=== PATIENT | female | born 1995 | race Caucasian/White ===

== ENCOUNTER 2017-10-09 06:21 | Emergency (ER) | payer BC, OTHER ==
[~2017-10-09] VITALS: Ht 165.1 cm; Wt 90.7 kg
[~2017-10-09 06:21] MED LIST: ACHYD1T PO; HYDR-3714 PO; HYDR1TAB PO; HYOS0.1216 PO; NITR100C3 PO; NORE1TAB95 PO; ONDA4TAB11 PO; PHEN200T16 PO; PHEN200T27 PO; SILO4CAP PO; SULF-109 PO; SULF-222 PO
[2017-10-09] MEDS ORDERED: ONDANSETRON 4 MG/2 ML (SDV) Z0FRAN IVP ONE (07:00)
[2017-10-09] MEDS ORDERED: NS IV 1000 ML 1,000 ML IV SCH (07:00)
[2017-10-09] MEDS ORDERED: KETOROLAC 30 MG/ML VIAL IVP ONE (07:00)
[2017-10-09 07:11] LABS: BASOPHILS % (AUTO) 0 % (0-10); EOSINOPHILS % (AUTO) 0 % (0-10); HEMATOCRIT 40 % (35-52); HEMOGLOBIN 13.9 G/DL (11.5-16.0); LYMPHOCYTES # (AUTO) 1.6 X 10^3 (1.0-4.0); LYMPHOCYTES % (AUTO) 13 % (12-44); MEAN CORPUSCULAR HEMOGLOBIN 30 PG (25-34); MEAN CORPUSCULAR HGB CONC 35 G/DL (32-36); MEAN CORPUSCULAR VOLUME 87 FL (80-99); MONOCYTES # (AUTO) 0.6 X 10^3 (0.0-1.0); MONOCYTES % (AUTO) 4 % (0-12); NEUTROPHILS # (AUTO) 10.6 X 10^3 (1.8-7.8); NEUTROPHILS % (AUTO) 83 % (42-75); PLATELET COUNT 332 10^3/uL (130-400); RED BLOOD COUNT 4.59 10^6/uL (4.35-5.85); RED CELL DISTRIBUTION WIDTH 12.3 % (10.0-14.5); WHITE BLOOD COUNT 12.8 10^3/uL (4.3-11.0)
[2017-10-09] MEDS ORDERED: NORE1CAP (07:11)
[2017-10-09] MEDS ORDERED: LEVO88TA54 (07:11)
[2017-10-09 07:21] LABS: ALANINE AMINOTRANSFERASE 31 U/L (0-55); ALBUMIN 4.6 GM/DL (3.2-4.5); ALKALINE PHOSPHATASE 74 U/L (40-136); BILIRUBIN,TOTAL 0.4 MG/DL (0.1-1.0); BUN/CREATININE RATIO 14; CARBON DIOXIDE 21 MMOL/L (21-32); CHLORIDE 106 MMOL/L (98-107); CREATININE SERUM 0.81 MG/DL (0.60-1.30); GFR ESTIMATED > 60; GLUCOSE 133 MG/DL (70-105); POTASSIUM 4.4 MMOL/L (3.6-5.0); SODIUM 140 MMOL/L (135-145); TOTAL PROTEIN 7.8 GM/DL (6.4-8.2)
[2017-10-09] MEDS ORDERED: fentaNYL INJECTION 100 MCG/2 ML AMP ONE (07:38)
[2017-10-09] MEDS ORDERED: fentaNYL INJECTION 100 MCG/2 ML AMP IVP ONE (07:45)
--- NOTE | 2017-10-09 07:45 | ED Abdominal Pain ---
General Chief Complaint: Abdominal/GI Problems Stated Complaint: RT SIDE PAIN Nursing Triage Note: Began RLQ pain at 2100 last night, started with N/V intensity of pain at 0300 Sepsis Screen: No Definite Risk Source of Information: Patient, Family Exam Limitations: No Limitations History of Present Illness Date Seen by Provider: Oct 09, 2017 Time Seen by Provider: 06:45 Initial Comments This is a 22-year-old white female presents with paroxysmal right lower quadrant pain that began last night approximately 6 hours prior to presentation. Patient's had associated nausea and vomiting. Patient's pain is been severe in nature, sharp in quality, nonradiating, and somewhat similar nature to her previous kidney stones. Patient has had no associated fever or chill, dysuria, hematuria, change in stools, associated cough, headache, stiff neck, or photophobia. Patient is compliant on control pills. She denies previous . Allergies and Home Medications Allergies Coded Allergies: Penicillins (Unverified Allergy, Unknown, TURNS PURPLE, 05/07/14) Patient Home Medication List Home Medication List Reviewed: Yes Review of Systems Constitutional: No chills, No fever EENTM: No Ear Pain Respiratory: Denies Cough Cardiovascular: Denies Chest Pain Gastrointestinal: Abdominal Pain (right lower quadrant), Denies Diarrhea, Nausea, Vomiting Genitourinary: See HPI, Denies Burning, Denies Frequency, Denies Flank Pain Musculoskeletal: No back pain Skin: No rash Psychiatric/Neurological: No Symptoms Reported Endocrine: No Symptoms Reported Hematologic/Lymphatic: No Symptoms Reported Past Xnlftbu-Qgtria-Hbuiaf Hx Patient Social History Alcohol Use: Occasionally Uses Recreational Drug Use: No Smoking Status: Never a Smoker Recent Foreign Travel: No Contact w/Someone Who Travel: No Recent Infectious Disease Expo: No Recent Hopitalizations: No Seasonal Allergies Seasonal Allergies: No Surgeries History of Surgeries: No (renal basket retrivial or stent?) Respiratory History of Respiratory Disorde: No Cardiovascular History of Cardiac Disorders: No Neurological History of Neurological Disord: No Reproductive System Hx Reproductive Disorders: No Sexually Transmitted Disease: No Genitourinary History of Genitourinary Disor: No Genitourinary Disorders: Kidney Stones Gastrointestinal History of Gastrointestinal Di: No Musculoskeletal History of Musculoskeletal Dis: No Endocrine History of Endocrine Disorders: No HEENT History of HEENT Disorders: No Cancer History of Cancer: No Psychosocial History of Psychiatric Problem: No Integumentary History of Skin or Integumenta: No Blood Transfusions History of Blood Disorders: No Adverse Reaction to a Blood Tr: No Reviewed Nursing Assessment Reviewed/Agree w Nursing PMH: Yes Physical Exam Vital Signs VS - Last 72 Hours, by Label 10/09/17 06:42 Temp 96.2 Pulse 87 Resp 16 B/P (MAP) 146/102 (117) Pulse Ox 96 O2 Delivery Room Air Capillary Refill : Less Than 3 Seconds General Appearance: WD/WN, moderate distress HEENT: normal ENT inspection Neck: full range of motion Respiratory: lungs clear, normal breath sounds, no respiratory distress Cardiovascular: normal peripheral pulses, regular rate, rhythm Gastrointestinal: normal bowel sounds, non tender, soft Extremities: normal range of motion, non-tender, normal inspection Back: normal inspection Neurologic/Psychiatric: no motor/sensory deficits, alert, normal mood/affect Skin: normal color, warm/dry Progress/Results/Core Measures Results/Orders Lab Results Laboratory Tests Test 10/09/17 06:47 Range/Units White Blood Count 12.8 H 4.3-11.0 10^3/uL Red Blood Count 4.59 4.35-5.85 10^6/uL Hemoglobin 13.9 11.5-16.0 G/DL Hematocrit 40 35-52 % Mean Corpuscular Volume 87 80-99 FL Mean Corpuscular Hemoglobin 30 25-34 PG Mean Corpuscular Hemoglobin Concent 35 32-36 G/DL Red Cell Distribution Width 12.3 10.0-14.5 % Platelet Count 332 130-400 10^3/uL Mean Platelet Volume 10.0 7.4-10.4 FL Neutrophils (%) (Auto) 83 H 42-75 % Lymphocytes (%) (Auto) 13 12-44 % Monocytes (%) (Auto) 4 0-12 % Eosinophils (%) (Auto) 0 0-10 % Basophils (%) (Auto) 0 0-10 % Neutrophils # (Auto) 10.6 H 1.8-7.8 X 10^3 Lymphocytes # (Auto) 1.6 1.0-4.0 X 10^3 Monocytes # (Auto) 0.6 0.0-1.0 X 10^3 Eosinophils # (Auto) 0.0 0.0-0.3 10^3/uL Basophils # (Auto) 0.0 0.0-0.1 10^3/uL Sodium Level 140 135-145 MMOL/L Potassium Level 4.4 3.6-5.0 MMOL/L Chloride Level 106 98-107 MMOL/L Carbon Dioxide Level 21 21-32 MMOL/L Anion Gap 13 5-14 MMOL/L Blood Urea Nitrogen 11 7-18 MG/DL Creatinine 0.81 0.60-1.30 MG/DL Estimat Glomerular Filtration Rate > 60 BUN/Creatinine Ratio 14 Glucose Level 133 H 70-105 MG/DL Calcium Level 10.0 8.5-10.1 MG/DL Total Bilirubin 0.4 0.1-1.0 MG/DL Aspartate Amino Transf (AST/SGOT) 23 5-34 U/L Alanine Aminotransferase (ALT/SGPT) 31 0-55 U/L Alkaline Phosphatase 74 40-136 U/L Total Protein 7.8 6.4-8.2 GM/DL Albumin 4.6 H 3.2-4.5 GM/DL Serum Test, Qualitative NEGATIVE NEGATIVE My Orders Orders - RONAL FALL MD Ondansetron Injection (Zofran Injectio (10/09/17 07:00) Ketorolac Injection (Toradol Injection) (10/09/17 07:00) Ns Iv 1000 Ml (Sodium Chloride 0.9%) (10/09/17 07:00) Abdomen/Kub 1view (10/09/17 07:01) Us Abdomen Complete [id number] (10/09/17 07:01) Ua Culture If Indicated (10/09/17 07:01) Comprehensive Metabolic Panel (10/09/17 07:01) Cbc With Automated Diff (10/09/17 07:01) Hcg,Qualitative Serum (10/09/17 07:20) Fentanyl Injection (Sublimaze Injection (10/09/17 07:45) Fentanyl Injection (Sublimaze Injection (10/09/17 07:38) Medications Given in ED Current Medications Medications Dose Ordered Sig/[place] Route Start Time Stop Time Status Last Admin Dose Admin Fentanyl Citrate 50 mcg ONCE ONCE IVP 10/09/17 07:45 10/09/17 07:46 DC 10/09/17 07:44 50 MCG Ketorolac Tromethamine 30 mg ONCE ONCE IVP 10/09/17 07:00 10/09/17 07:01 DC 10/09/17 07:04 30 MG Ondansetron HCl 4 mg ONCE ONCE IVP 10/09/17 07:00 10/09/17 07:01 DC 10/09/17 07:04 4 MG Vital Signs/I&O Vital Sign - Last 12Hours 10/09/17 06:42 Temp 96.2 Pulse 87 Resp 16 B/P (MAP) 146/102 (117) Pulse Ox 96 O2 Delivery Room Air Blood Pressure Mean: 117 Progress Note : Time: 07:46 Progress Note Patient was given IV Zofran and Toradol. Patient's pain was relieved for approximately 10 minutes and then the pain recurred. She received 50 g of fentanyl IV. Patient's ultrasound demonstrated moderate hydronephrosis on the right. The patient's CBC was unremarkable. I did not see a stone on the KUB. Patient's pain was dramatically improved from presentation at time of discharge. We discussed treatment options at home. The patient declined Flomax. We gave her prescription for small amount of Percocet and Toradol should the pain recur. I invited her to return to the emergency department should any further problems or questions. Departure Impression Impression: Primary Impression: Kidney stone on right side Disposition: 01 HOME, SELF-CARE Condition: Improved ( ) Departure-Patient Inst. Decision time for Depature: 08:45 Referrals: JUDAH AQUINO DO (PCP) Primary Care Physician FREDY NELSON (Family) Primary Care Physician Patient Instructions: Kidney Stones in Adults Add. Discharge Instructions: Percocet and Toradol for pain if needed. Close follow-up with your caregivers on Wednesday. Return of any problems. All discharge instructions reviewed with patient and/or family. Voiced understanding. RONAL FALL MD Oct 09, 2017 07:45
--- NOTE | 2017-10-09 08:22 | Diagnostic Imaging Report ---
INDICATION: Right flank pain. COMPARISON: Radiographs of 05/08/2014. FINDINGS: Punctate rounded 2 mm density overlies the upper pole of the left kidney. Assessment for renal calculi on the right is limited due to overlying bowel gas and colonic stool. Potential 3 mm calculus at the level of the right L3 transverse process. Normal regional skeleton. Nonobstructive bowel gas pattern. IMPRESSION: 1. Radiographic assessment for urinary tract calculi is very limited. If there is concern for urinary tract calculi or obstruction, CT of the abdomen without contrast is recommended. Dictated by: Dictated on workstation # [id number]
[2017-10-09 08:50] VITALS: BP 138/85
[2017-10-09 08:56] LABS: BILIRUBIN,URINE NEGATIVE (NEGATIVE); CLARITY,URINE VERY CLOUDY; COLOR,URINE AMBER; GLUCOSE, URINE (UA) NEGATIVE (NEGATIVE); KETONES,URINE 2+ (NEGATIVE); LEUKOCYTE ESTERASE ,URINE 1+ (NEGATIVE); NITRITE,URINE NEGATIVE (NEGATIVE); PH,URINE 6.5 (5-9); PROTEIN,URINE 2+ (NEGATIVE); UROBILINOGEN,URINE NORMAL (NORMAL)
--- NOTE | 2017-10-09 08:57 | Diagnostic Imaging Report ---
PROCEDURE: US abdomen complete. TECHNIQUE: Multiple real-time grayscale images were obtained over the abdomen in various projections. INDICATION: Right flank pain. COMPARISON: None available. FINDINGS: The liver has diffuse increased echogenicity suggestive of mild hepatic steatosis. Well-circumscribed 1.3 cm hypoechoic nodule in the posterior right hepatic lobe may represent focal fatty sparing but is indeterminate. The main portal vein is patent with antegrade flow. The gallbladder is distended without gallstones, wall thickening, or pericholecystic fluid. The common bile duct measures up to 0.4 cm in diameter. No intrahepatic biliary dilation. The visualized portions of the pancreas are normal. Portions of the head and tail are obscured by overlying bowel gas. The right kidney is normal in size with mild hydronephrosis. No shadowing echogenic calculi. The left kidney is normal. The spleen is normal in size measuring 11 cm and without focal lesion. The aorta and IVC are normal in caliber where seen. IMPRESSION: 1. Mild right hydronephrosis. Given history of right-sided flank pain, features are suspicious for partially obstructing ureteral stone. CT of the abdomen and pelvis according to the renal stone protocol is advised for further characterization. 2. Mild diffuse hepatic steatosis. Potential focal fatty sparing versus indeterminate lesion, right hepatic lobe. Attention on followup CT. Dictated by: Dictated on workstation # [id number]
[2017-10-09 09:10] LABS: BACTERIA,URINE MODERATE /HPF; RBC,URINE TNTC /HPF
== END 2017-10-09 08:50 | disposition home or self-care (01) ==
LOC: EDUNIT# 06:21 → ER 06:24
DX: N20.0 Calculus of kidney (principal); Z32.02 Encounter for pregnancy test, result negative; Z88.0 Allergy status to penicillin
CPT/HCPCS: 36415; 74018; 76700; 80053; 81000; 84703; 85025

== ENCOUNTER → 2020-12-18 | Outpatient (CLI) | payer BC ==
[~2020-12-18] MED LIST changes: +LEVO88TA54; +NORE1CAP
--- NOTE | 2020-12-18 17:08 | Diagnostic Imaging Report ---
INDICATION: Anatomy survey. TECHNIQUE: Multiple real-time grayscale images were obtained over the gravid uterus. COMPARISON: None FINDINGS: CLINICAL DATES: Gestational age 19 weeks, 5 days, with an MARLEN of 05/09/2021. Number: Single live intrauterine Presentation: Cephalic Placenta: Anterior Amniotic Fluid: ANTONY is within normal limits. No measurements were taken. Heart Rate: 149 bpm Biometrical measurements are as follows: Biparietal 4.76 cm, age 20 weeks 3 days. Head circumference 17.43 cm, age 20 weeks 0 days. Abdominal circumference 13.88 cm, age 19 weeks 2 days. Femur length 3.35 cm, age 20 weeks 4 days. Sonographic estimate age: 20 weeks 1 days. Sonographic estimated date of delivery: 05/06/2021. Estimated Weight: 319 gm (+/- 47 gm). LMP percentile: 55%. Cerebellum: visualized Lateral ventricles: visualized Cavum septum pellucidum: visualized Nasal Bone: visualized Face: visualized Stomach: visualized Kidneys: visualized Bladder: visualized Three vessel cord: visualized Cord insertion: visualized 4 chamber heart: visualized outflow tracts: Not well visualized Spine, upper: Not well visualized Spine, lower: Not well visualized Upper extremities: Not well visualized Lower extremities: Not well visualized Hands: Visualized, however not all fingers are well seen. Feet: Visualized, however not all toes are well seen. IMPRESSION: 1. Single live intrauterine at approximately 20 weeks, 1 days, with an MARLEN of 05/06/2021. These are within range clinical dates. 2. The outflow tracts, spine, and upper and lower extremities are not well visualized due to position. The remaining anatomic structures are seen and have a normal appearance. Recommend follow-up as indicated. Dictated by: Dictated on workstation # [id number]
== END ==
LOC: MERGE 15:15 → RAD 15:15
PROVIDERS: ATTEND Obstetrics & Gynecology
DX: Z36.89 Encounter for other specified antenatal screening (principal); Z3A.20 20 weeks gestation of pregnancy
CPT/HCPCS: 76805

== ENCOUNTER → 2021-01-22 | Outpatient (CLI) | payer BC ==
--- NOTE | 2021-01-22 17:46 | Diagnostic Imaging Report ---
INDICATION: Follow-up anatomy. TECHNIQUE: Multiple real-time grayscale images were obtained over the gravid uterus. COMPARISON: 12/18/2020. FINDINGS: A single live intrauterine gestation is visualized in breech presentation. measurements were not performed on this exam. The cervix is closed and measures 5.3 cm in length. The placenta is anterior and not low lying. heart tones measure 152 bpm. The amniotic fluid is visually normal. The upper and lower extremities are visualized and have a normal appearance. The upper spine is visualized and has a normal appearance. The lower spine is again not well seen due to position. The outflow tracts are visualized on today's exam and have a normal appearance. A four-chamber heart is noted. IMPRESSION: 1. Single live intrauterine gestation in breech presentation. heart tones measure 152 bpm. 2. The upper and lower extremities, upper spine, and outflow tracts are visualized on today's exam and have a normal appearance. The lower spine is still not well seen due to position. 3. Breech presentation. Dictated by: Dictated on workstation # [id number]
== END ==
LOC: RAD 15:15
PROVIDERS: ATTEND Obstetrics & Gynecology
DX: Z36.89 Encounter for other specified antenatal screening (principal)
CPT/HCPCS: 76816

== ENCOUNTER 2021-03-17 09:40 | Outpatient (CLI) | payer BC ==
[~2021-03-17] VITALS: Ht 163 cm; Wt 103.1 kg
[2021-03-17 09:55] VITALS: BP 136/97
[2021-03-17 09:57] VITALS: BP 136/97
[2021-03-17 10:00] VITALS: BP 136/97
[2021-03-17 10:13] LABS: BILIRUBIN,URINE NEGATIVE (NEGATIVE); CLARITY,URINE CLEAR; COLOR,URINE YELLOW; GLUCOSE, URINE (UA) NEGATIVE (NEGATIVE); KETONES,URINE 1+ (NEGATIVE); LEUKOCYTE ESTERASE ,URINE NEGATIVE (NEGATIVE); NITRITE,URINE NEGATIVE (NEGATIVE); PROTEIN,URINE NEGATIVE (NEGATIVE)
[2021-03-17 10:25] LABS: BACTERIA,URINE MODERATE /HPF; RBC,URINE RARE /HPF
[2021-03-17 11:37] LABS: BASOPHILS % (AUTO) 0 % (0-10); EOSINOPHILS % (AUTO) 0 % (0-10); HEMATOCRIT 33 % (35-52); HEMOGLOBIN 10.8 g/dL (11.5-16.0); LYMPHOCYTES # (AUTO) 1.5 10^3/uL (1.0-4.0); LYMPHOCYTES % (AUTO) 14 % (12-44); MEAN CORPUSCULAR HEMOGLOBIN 30 pg (25-34); MEAN CORPUSCULAR HGB CONC 33 g/dL (32-36); MEAN CORPUSCULAR VOLUME 92 fL (80-99); MEAN PLATELET VOLUME 10.7 fL (9.0-12.2); MONOCYTES # (AUTO) 0.6 10^3/uL (0.0-1.0); MONOCYTES % (AUTO) 6 % (0-12); NEUTROPHILS # (AUTO) 8.2 10^3/uL (1.8-7.8); NEUTROPHILS % (AUTO) 79 % (42-75); PLATELET COUNT 206 10^3/uL (130-400); WHITE BLOOD COUNT 10.4 10^3/uL (4.3-11.0)
[2021-03-17 11:45] VITALS: BP 153/85
[2021-03-17 12:04] LABS: ALBUMIN 3.2 GM/DL (3.2-4.5); BILIRUBIN,DIRECT 0.2 MG/DL (0.0-0.3); BILIRUBIN,INDIRECT 0.2 MG/DL; BILIRUBIN,TOTAL 0.4 MG/DL (0.1-1.0); CALCIUM 9.4 MG/DL (8.5-10.1); CREATININE SERUM 0.74 MG/DL (0.60-1.30); POTASSIUM 3.9 MMOL/L (3.6-5.0); TOTAL PROTEIN 6.3 GM/DL (6.4-8.2)
--- NOTE | 2021-03-17 12:06 | Diagnostic Imaging Report ---
PROCEDURE: US Gallbladder. TECHNIQUE: Multiple real-time grayscale images were obtained over the right upper quadrant in various projections. INDICATION: Vomiting right upper quadrant pain. COMPARISON STUDY: Ultrasound of the abdomen from 2018. FINDINGS: Pancreas appears normal. The aorta and IVC are normal caliber. The liver is normal size and echogenicity. Portal vein is patent. No duct dilatation is present. Common bile duct is normal caliber measuring 4 mm. No gallstones, pericholecystic fluid, ascites or sonographic Kumar's sign is present. Gallbladder wall is normal thickness measuring 2 mm. The right kidney again demonstrates mild right hydronephrosis. 6 mm hyperechoic area seen in the upper pole. There is a 1.3 cm stone in the right ureter. IMPRESSION: 1. The liver and gallbladder are normal. 2. Right renal lithiasis is present with an obstructing calculi in the proximal right ureter. There is mild hydronephrosis. Dictated by: Dictated on workstation # [id number]
[2021-03-17] MEDS ORDERED: ACETAMINOPHEN 500 MG TAB (TYLENOL) PO ONE (13:15)
[2021-03-17] MEDS ORDERED: D5 LR IV SOLUTION 1,000 ML IV ONE (13:47)
--- NOTE | 2021-03-17 14:00 | Diagnostic Imaging Report ---
INDICATION: Nephrolithiasis. EXAMINATION: KUB at 1:56 p.m. FINDINGS: There is a third trimester in cephalic presentation with back to maternal right. There are no calculi seen, although a small calculus in the ureter could be obscured by the skeleton. Bowel gas pattern is unremarkable. IMPRESSION: Third trimester . No other abnormality seen. Dictated by: Dictated on workstation # [id number]
[2021-03-17] MEDS ORDERED: D5 LR IV SOLUTION 1,000 ML IV SCH (15:00)
--- NOTE | 2021-03-17 15:12 | Diagnostic Imaging Report ---
PROCEDURE: CT urinary tract, rule out kidney stone. TECHNIQUE: Multiple contiguous axial images were obtained through the abdomen and pelvis without the use of intravenous contrast. Auto Exposure Controls were utilized during the CT exam to meet ALARA standards for radiation dose reduction. INDICATION: Kidney stones and a right ureteral stone noted on recent ultrasound. CORRELATION is made with ultrasound from earlier today. FINDINGS: The lung bases are clear. There are numerous intrarenal calculi bilaterally. Largest intrarenal calculus on the right is in the upper pole measuring 5 mm. The largest intrarenal calculus on the left is in the lower pole measuring 4 mm. There is a right ureteral calculus measuring 7 mm in size. This is located just below the level of the iliac crest. No other ureteral calculi are seen. No bladder calculi are detected. The liver, gallbladder, pancreas and spleen are unremarkable. No adrenal mass is seen. Bowel loops are unremarkable. Intrauterine fetus in a breech presentation is noted. IMPRESSION: 1. Bilateral nonobstructing nephrolithiasis. In addition, there is a 7 mm calculus at the junction of the proximal and mid right ureter at the level of the right iliac crest producing mild hydroureteronephrosis. No other ureteral calculi are detected. 2. Third trimester fetus in a cephalic presentation. Dictated by: Dictated on workstation # [id number]
--- NOTE | 2021-03-17 15:58 | History & Physical-OB ---
OB - Chief Complaint & HPI Date/Time Date of Admission: Date of Admission: Date seen by a Provider: Mar 17, 2021 Time Seen by a Provider: 17:30 Chief Complaint/History OB-Reason for Admission/Chief: Hx : 1 Hx Para: 0 Expected Date of Delivery: May 09, 2021 Gestational Age in Weeks: 32 Gestational Age in Days: 3 Other reason for admission: Patient admitted for observation and urology evaluation due to finding ureterolithiasis on US after patient presented with severe abdominal pain and blood in urine. Admission Nurse Assessment Rev: Yes Allergies and Home Medications Allergies Coded Allergies: Penicillins (Unverified Allergy, Unknown, TURNS PURPLE, 05/07/14) Patient Home Medication List Home Medication List Reviewed: Yes OB - History Hx of Present Care: Yes Ultrasounds: Normal mid trimester US Obstetrical Complications: None Medical Complications: None Obstetrical History Hx : 1 Hx Para: 0 Hx Total # of Abortions (Spona: 0 Delivery History Hx Blood Disorders: No Adverse Rxn to Tranfusion: No Patient Past Medical History Hypothyroidism Social History/Family History Alcohol Use: Denies Use Recreational Drug Use: No 2nd Hand Smoke Exposure: No OB - Admission Exam Physical Exam Vitals: Vital Signs 03/17/21 10:00 Temp 36.2 Pulse 95 Resp 20 Pulse Ox 98 O2 Delivery Room Air HEENT: NCAT Heart: Rhythm Normal Lungs: Clear Abdomen: Gravid Heart Rate: 130's Accelerations: Accelerations Present Decelerations: No Decelerations Primer And Powder Canning Leader Variability: Average (6-25) Contractions on Admission: >10 Minutes Apart Labs Laboratory Tests Test 03/17/21 09:45 03/17/21 11:28 Range/Units Urine Color YELLOW Urine Clarity CLEAR Urine pH 7.0 5-9 Urine Specific [place] 1.010 L 1.016-1.022 Urine Protein NEGATIVE NEGATIVE Urine Glucose (UA) NEGATIVE NEGATIVE Urine Ketones 1+ H NEGATIVE Urine Nitrite NEGATIVE NEGATIVE Urine Bilirubin NEGATIVE NEGATIVE Urine Urobilinogen 0.2 < = 1.0 MG/DL Urine Leukocyte Esterase NEGATIVE NEGATIVE Urine RBC (Auto) NEGATIVE NEGATIVE Urine RBC RARE /HPF Urine WBC 5-10 H /HPF Urine Squamous Epithelial Cells 5-10 /HPF Urine Crystals NONE /LPF Urine Bacteria MODERATE H /HPF Urine Casts NONE /LPF Urine Mucus NEGATIVE /LPF Urine Culture Indicated CULTURE PENDING White Blood Count 10.4 4.3-11.0 10^3/uL Red Blood Count 3.55 L 3.80-5.11 10^6/uL Hemoglobin 10.8 L 11.5-16.0 g/dL Hematocrit 33 L 35-52 % Mean Corpuscular Volume 92 80-99 fL Mean Corpuscular Hemoglobin 30 25-34 pg Mean Corpuscular Hemoglobin Concent 33 32-36 g/dL Red Cell Distribution Width 13.3 10.0-14.5 % Platelet Count 206 130-400 10^3/uL Mean Platelet Volume 10.7 9.0-12.2 fL Immature Granulocyte % (Auto) 1 % Neutrophils (%) (Auto) 79 H 42-75 % Lymphocytes (%) (Auto) 14 12-44 % Monocytes (%) (Auto) 6 0-12 % Eosinophils (%) (Auto) 0 0-10 % Basophils (%) (Auto) 0 0-10 % Neutrophils # (Auto) 8.2 H 1.8-7.8 10^3/uL Lymphocytes # (Auto) 1.5 1.0-4.0 10^3/uL Monocytes # (Auto) 0.6 0.0-1.0 10^3/uL Eosinophils # (Auto) 0.0 0.0-0.3 10^3/uL Basophils # (Auto) 0.0 0.0-0.1 10^3/uL Immature Granulocyte # (Auto) 0.1 0.0-0.1 10^3/uL Sodium Level 139 135-145 MMOL/L Potassium Level 3.9 3.6-5.0 MMOL/L Chloride Level 109 H 98-107 MMOL/L Carbon Dioxide Level 22 21-32 MMOL/L Anion Gap 8 5-14 MMOL/L Blood Urea Nitrogen 7 7-18 MG/DL Creatinine 0.74 0.60-1.30 MG/DL Estimat Glomerular Filtration Rate 95 BUN/Creatinine Ratio 9 Glucose Level 73 70-105 MG/DL Calcium Level 9.4 8.5-10.1 MG/DL Corrected Calcium 10.0 8.5-10.1 MG/DL Total Bilirubin 0.4 0.1-1.0 MG/DL Direct Bilirubin 0.2 0.0-0.3 MG/DL Indirect Bilirubin 0.2 MG/DL Aspartate Amino Transf (AST/SGOT) 18 5-34 U/L Alanine Aminotransferase (ALT/SGPT) 24 0-55 U/L Alkaline Phosphatase 236 H 40-136 U/L Total Protein 6.3 L 6.4-8.2 GM/DL Albumin 3.2 3.2-4.5 GM/DL Amylase Level 52 25-125 U/L Lipase 15 8-78 U/L OB - Assessment/Plan/Diagnosis Assessment Assessment: other Admission Dx 25 yo @ 32 weeks Ureterolithiasis Hematuria Admission Status: Observation Plan Other Plan IVF and pain control Consult urology for further recommendation MARY GONZALEZ DO Mar 17, 2021 15:58
--- NOTE | 2021-03-18 08:38 | CONSULTATION REPORT ---
DATE OF SERVICE: 03/17/2021 ATTENDING PHYSICIAN: Bryon Farias DO SUMMARY: After reviewing the patient's record in the hospital and in the office, this is a 25-year-old 32-week , first with history of urolithiasis. I took care of her kidney stones before and then she never followup. She is being admitted with right flank pain. An ultrasound revealed a stone in the proximal ureter, which in my opinion was overestimated size. We did a KUB. I could not see the stone, so we obtained the noncontrast CT scan that revealed bilateral nonobstructing stones and a stone at the junction of the proximal and mid right ureter at the level of the iliac crest causing some mild hydronephrosis. I measured it for less than 5 mm. Patient has been asymptomatic since admission and the pain was relieved by Tylenol. IMPRESSION: Right mid ureteral stone with mild hydronephrosis and pain in a woman. PLAN: I discussed the option in details with the patient and her . Pros and cons, expectation risk and complication. Told her that the best way is to spontaneously pass the urine by pushing fluids and straining to confirm passage of the stone. If not, if we can see the stone we can either retrieve it or put a stent, but if not, she will have to go to a place where they have flexible ureteroscopy to minimize the use of fluoroscopy and to easier access to the stone with the flexible ureteroscope. The patient wishes to go home. We will check with Dr. Farias regarding that. Job ID: [id number] DocumentID: [id number] Dictated Date: 03/18/2021 07:05:28 Director Of Retention Date: 03/18/2021 08:37:50 Dictated By: MARITZA MERAZ MD
== END 2021-03-17 18:20 | disposition home or self-care (01) ==
LOC: WSo 09:40 → LDRP 09:42 → WSo 18:20
PROVIDERS: ATTEND Obstetrics & Gynecology
DX: O26.899 Other specified pregnancy related conditions, unspecified trimester (principal); Z3A.00 Weeks of gestation of pregnancy not specified
CPT/HCPCS: 36415; 74018; 74176; 76705; 80053; 81000; 82150; 82247; 82248; 83690; 85025; 87088; 96360; 96361; 99213

== ENCOUNTER → 2021-04-03 | Outpatient (CLI) | payer BC ==
[~2021-04-03] MED LIST changes: +ASPI-999 PO; +CETI10TA49 PO; +LABE200T7 PO; +LEVO100T7 PO; +PREN1TAB79 PO
[2021-04-03 13:08] LABS: BASOPHILS % (AUTO) 0 % (0-10); EOSINOPHILS # (AUTO) 0.1 10^3/uL (0.0-0.3); EOSINOPHILS % (AUTO) 1 % (0-10); HEMATOCRIT 35 % (35-52); LYMPHOCYTES # (AUTO) 1.7 10^3/uL (1.0-4.0); LYMPHOCYTES % (AUTO) 18 % (12-44); MEAN CORPUSCULAR HEMOGLOBIN 31 pg (25-34); MEAN CORPUSCULAR HGB CONC 34 g/dL (32-36); MEAN CORPUSCULAR VOLUME 89 fL (80-99); MEAN PLATELET VOLUME 11.2 fL (9.0-12.2); MONOCYTES # (AUTO) 0.7 10^3/uL (0.0-1.0); MONOCYTES % (AUTO) 8 % (0-12); NEUTROPHILS # (AUTO) 6.9 10^3/uL (1.8-7.8); NEUTROPHILS % (AUTO) 73 % (42-75); PLATELET COUNT 238 10^3/uL (130-400); WHITE BLOOD COUNT 9.5 10^3/uL (4.3-11.0)
[2021-04-03 13:33] LABS: ALBUMIN 3.4 GM/DL (3.2-4.5); BILIRUBIN,TOTAL 0.3 MG/DL (0.1-1.0); CALCIUM 10.3 MG/DL (8.5-10.1); CREATININE SERUM 0.59 MG/DL (0.60-1.30); TOTAL PROTEIN 6.4 GM/DL (6.4-8.2)
== END ==
LOC: WSo 13:00
PROVIDERS: ATTEND Nurse Practitioner Women's Health
DX: R03.0 Elevated blood-pressure reading, without diagnosis of hypertension (principal)
CPT/HCPCS: 36415; 80053; 82570; 83615; 84156; 84550; 85025

== ENCOUNTER → 2021-04-04 | Outpatient (CLI) | payer BC ==
[~2021-04-04] MED LIST changes: -ASPI-999 PO; -CETI10TA49 PO; -LABE200T7 PO; -LEVO100T7 PO; -PREN1TAB79 PO
--- NOTE | 2021-04-04 13:47 | Diagnostic Imaging Report ---
INDICATION: Gestational hypertension. biophysical profile. biophysical profile score is 8 out of 8. Presentation is cephalic. Placenta is anterior. ANTONY is 17.9. heart rate was 185 bpm. IMPRESSION: biophysical profile score is 8 out of 8. Dictated by: Dictated on workstation # [id number]
[2021-04-04 14:16] VITALS: BP 140/89
== END ==
LOC: RAD 13:15
PROVIDERS: ATTEND Obstetrics & Gynecology
DX: O13.9 Gestational [pregnancy-induced] hypertension without significant proteinuria, unspecified trimester (principal); Z3A.00 Weeks of gestation of pregnancy not specified
CPT/HCPCS: 76819

== ENCOUNTER → 2021-04-10 | Outpatient (CLI) | payer BC ==
--- NOTE | 2021-04-10 13:34 | Diagnostic Imaging Report ---
INDICATION: Hypertension and evaluate growth. TECHNIQUE: Multiple real-time grayscale images were obtained over the gravid uterus. COMPARISON: None FINDINGS: There is a single live fetus in a cephalic presentation. heart rate was recorded at 158 bpm. Placenta is anterior. Amniotic fluid index is 13.6 cm. Biophysical was also performed with a normal score of 8 out of 8. Biometrical measurements are as follows: Biparietal 9.07 cm, age 36 weeks 6 days. Head circumference 32.58 cm, age 37 weeks 0 days. Abdominal circumference 31.23 cm, age 35 weeks 2 days. Femur length 7.12 cm, age 36 weeks 4 days. Sonographic estimate age: 36 weeks 3 days. Sonographic estimated date of delivery: 05/05/21. Estimated Weight: 2790 gm (+/- 407 gm). LMP percentile: 51%. heart rate: 158 beats per minute. number: 1 of 1. IMPRESSION: Single live IUP approximately 36 weeks gestational age. Biophysical profile score is 8 out of 8. No complicating features are detected. Dictated by: Dictated on workstation # [id number]
== END ==
LOC: RAD 12:00
PROVIDERS: ATTEND Obstetrics & Gynecology
DX: O13.3 Gestational [pregnancy-induced] hypertension without significant proteinuria, third trimester (principal); Z3A.36 36 weeks gestation of pregnancy
CPT/HCPCS: 76805; 76819

== ENCOUNTER 2021-04-21 00:45 | Inpatient (IN) | payer BC ==
[~2021-04-21] VITALS: Ht 162.6 cm; Wt 108.7 kg
[2021-04-21] MEDS ORDERED: D5 LR IV SOLUTION 1,000 ML IV ONE (19:34)
[2021-04-21 19:42] VITALS: BP 163/96
[2021-04-21 19:50] VITALS: BP 166/104
[2021-04-21] MEDS ORDERED: MINERAL OIL CONCENTRATE 99.9% 15 ML UDC TOP PRN (20:00)
[2021-04-21] MEDS ORDERED: TERBUTALINE INJ 1 MG/ML (BRETHINE) AMP SC PRN (20:00)
[2021-04-21] MEDS ORDERED: LIDOCAINE/EPI 2% 1:200,00 (XYLOCAINE) 20 ML VIAL INJ PRN (20:00)
[2021-04-21] MEDS ORDERED: LEVO100T7 PO (20:05)
[2021-04-21] MEDS ORDERED: LABE200T7 PO (20:05)
[2021-04-21] MEDS ORDERED: ASPI-999 PO (20:05)
[2021-04-21] MEDS ORDERED: PREN1TAB79 PO (20:05)
[2021-04-21] MEDS ORDERED: CETI10TA49 PO (20:05)
[2021-04-21 20:07] LABS: BASOPHILS % (AUTO) 0 % (0-10); EOSINOPHILS # (AUTO) 0.1 10^3/uL (0.0-0.3); EOSINOPHILS % (AUTO) 1 % (0-10); HEMATOCRIT 34 % (35-52); HEMOGLOBIN 11.5 g/dL (11.5-16.0); LYMPHOCYTES % (AUTO) 23 % (12-44); MEAN CORPUSCULAR HEMOGLOBIN 30 pg (25-34); MEAN CORPUSCULAR HGB CONC 34 g/dL (32-36); MEAN CORPUSCULAR VOLUME 89 fL (80-99); MEAN PLATELET VOLUME 11.9 fL (9.0-12.2); MONOCYTES # (AUTO) 0.6 10^3/uL (0.0-1.0); MONOCYTES % (AUTO) 8 % (0-12); NEUTROPHILS # (AUTO) 5.8 10^3/uL (1.8-7.8); NEUTROPHILS % (AUTO) 68 % (42-75); PLATELET COUNT 212 10^3/uL (130-400); WHITE BLOOD COUNT 8.6 10^3/uL (4.3-11.0)
[2021-04-21 20:08] LABS: BILIRUBIN,URINE NEGATIVE (NEGATIVE); CLARITY,URINE CLEAR; COLOR,URINE YELLOW; GLUCOSE, URINE (UA) NEGATIVE (NEGATIVE); KETONES,URINE NEGATIVE (NEGATIVE); LEUKOCYTE ESTERASE ,URINE 1+ (NEGATIVE); NITRITE,URINE NEGATIVE (NEGATIVE); PROTEIN,URINE NEGATIVE (NEGATIVE)
[2021-04-21] MEDS: D5 LR IV SOLUTION 1,000 ML IV SCH ×2 (20:08→23:50)
[2021-04-21 20:25] LABS: ALBUMIN 3.4 GM/DL (3.2-4.5); BILIRUBIN,TOTAL 0.2 MG/DL (0.1-1.0); CALCIUM 10.2 MG/DL (8.5-10.1); CREATININE SERUM 0.61 MG/DL (0.60-1.30); POTASSIUM 4.2 MMOL/L (3.6-5.0); TOTAL PROTEIN 6.2 GM/DL (6.4-8.2)
[2021-04-21 20:26] LABS: URINE CREATININE FOR RATIO 24 MG/DL (30-125); URINE PROTEIN FOR RATIO ONLY < 6 MG/DL (6-12)
[2021-04-21 20:29] VITALS: BP 166/104
[2021-04-21 20:32] LABS: BACTERIA,URINE MODERATE /HPF
[2021-04-21 20:34] LABS: AMORPHOUS SEDIMENT,UR FEW AMOR URATES /LPF
[2021-04-21 21:45] VITALS: BP 162/85
[2021-04-21] MEDS ORDERED: ZOLPIDEM 5 MG (AMBIEN) TAB PO NR (22:00)
[2021-04-21 23:00] VITALS: BP 155/77
[2021-04-21] MEDS: CATHETER FLUSH 10 ML SYR IV SCH (23:11)
[2021-04-21 23:58] VITALS: BP 158/91
[2021-04-22] VITALS (59 sets, daily range): BP systolic 42–199; BP diastolic 73–126
[2021-04-22] MEDS ORDERED: BUTORPHANOL INJ 2 MG/ML (STADOL) VIAL ONE (05:40)
[2021-04-22] MEDS ORDERED: BUTORPHANOL INJ 2 MG/ML (STADOL) VIAL IV ONE (05:45)
[2021-04-22] MEDS: CATHETER FLUSH 10 ML SYR IV SCH ×2 (06:30→20:22)
[2021-04-22] MEDS ORDERED: LABETALOL HCL 20 MG/4 ML VIAL ONE (07:59)
--- NOTE | 2021-04-22 07:59 | History & Physical-OB ---
OB - Chief Complaint & HPI Date/Time Date of Admission: Date of Admission: Apr 21, 2021 at 18:30 Chief Complaint/History OB-Reason for Admission/Chief: Induction of Labor Expected Date of Delivery: May 09, 2021 Gestational Age in Weeks: 37 Gestational Age in Days: 3 Allergies and Home Medications Allergies Coded Allergies: Penicillins (Unverified Allergy, Unknown, TURNS PURPLE, 05/07/14) Patient Home Medication List Aspirin (Aspirin) 81 Mg Tab.chew, 81 MG PO DAILY, (Reported) Entered as Reported by: JOCELYN ARRINGTON on 04/21/212004 Last Action: New Order Cetirizine HCl (Zyrtec) 10 Mg Tablet, 10 MG PO DAILY, (Reported) Entered as Reported by: JOCELYN ARRINGTON on 04/21/212004 Last Action: New Order Labetalol HCl (Labetalol HCl) 200 Mg Tablet, 200 MG PO TID, (Reported) Entered as Reported by: JOCELYN ARRINGTON on 04/21/212004 Last Action: New Order Levothyroxine Sodium (Levothyroxine Sodium) 100 Mcg Tablet, 100 MCG PO DAILY, (Reported) Entered as Reported by: JOCELYN ARRINGTON on 04/21/212004 Last Action: New Order Vit W-Ca,Fe,FA(<1 mg) ( Vitamins) 1 Each Tablet, 1 EACH PO DAILY, (Reported) Entered as Reported by: JOCELYN ARRINGTON on 04/21/212004 Last Action: New Order Discontinued Medications Levothyroxine Sodium (Levothyroxine Sodium) 88 Mcg Tablet, (Reported) Discontinued Reason: No Longer Taking Entered as Reported by: FREDY LINARES on 10/09/17710 Last Action: Discontinued Norethindrone-E.estradiol-Iron ([place] 1 mg-20 Mcg Capsule) 1 Each Capsule, (Reported) Discontinued Reason: No Longer Taking Entered as Reported by: FREDY LINARES on 10/09/17710 Last Action: Discontinued OB - History Delivery History Hx Blood Disorders: No Adverse Rxn to Tranfusion: No Patient Past Medical History Hypothyroidism Social History/Family History 2nd Hand Smoke Exposure: No OB - Admission Exam Physical Exam Vitals: Vital Signs 04/21/21 04/22/21 04/22/21 20:29 05:50 06:25 Temp 36.0 Pulse 54 Resp 18 B/P (MAP) 142/91 (108) Pulse Ox 98 O2 Delivery Room Air Cervical Dilatation: 2cm Effacement: 100% Station: -1 Membranes: Ruptured (AROM) Amniotic Fluid: Clear Heart Rate: 140's Accelerations: Accelerations Present Decelerations: No Decelerations Short Term Variability: Present Custodial Variability: Average (6-25) Contractions on Admission: >10 Minutes Apart (now every 2 minutes) Labs Laboratory Tests Test 04/21/21 19:20 04/21/21 19:35 Range/Units Urine Color YELLOW Urine Clarity CLEAR Urine pH 6.0 5-9 Urine Specific [place] 1.010 L 1.016-1.022 Urine Protein NEGATIVE NEGATIVE Urine Glucose (UA) NEGATIVE NEGATIVE Urine Ketones NEGATIVE NEGATIVE Urine Nitrite NEGATIVE NEGATIVE Urine Bilirubin NEGATIVE NEGATIVE Urine Urobilinogen 0.2 < = 1.0 MG/DL Urine Leukocyte Esterase 1+ H NEGATIVE Urine RBC (Auto) NEGATIVE NEGATIVE Urine RBC NONE /HPF Urine WBC 2-5 /HPF Urine Crystals PRESENT H /LPF Urine Amorphous Sediment FEW PAULINO URATES H /LPF Urine Bacteria MODERATE H /HPF Urine Casts NONE /LPF Urine Mucus NEGATIVE /LPF Urine Culture Indicated YES Urine Creatinine 24 L 30-125 MG/DL Urine Protein/Creatinine Ratio White Blood Count 8.6 4.3-11.0 10^3/uL Red Blood Count 3.79 L 3.80-5.11 10^6/uL Hemoglobin 11.5 11.5-16.0 g/dL Hematocrit 34 L 35-52 % Mean Corpuscular Volume 89 80-99 fL Mean Corpuscular Hemoglobin 30 25-34 pg Mean Corpuscular Hemoglobin Concent 34 32-36 g/dL Red Cell Distribution Width 13.3 10.0-14.5 % Platelet Count 212 130-400 10^3/uL Mean Platelet Volume 11.9 9.0-12.2 fL Immature Granulocyte % (Auto) 1 % Neutrophils (%) (Auto) 68 42-75 % Lymphocytes (%) (Auto) 23 12-44 % Monocytes (%) (Auto) 8 0-12 % Eosinophils (%) (Auto) 1 0-10 % Basophils (%) (Auto) 0 0-10 % Neutrophils # (Auto) 5.8 1.8-7.8 10^3/uL Lymphocytes # (Auto) 2.0 1.0-4.0 10^3/uL Monocytes # (Auto) 0.6 0.0-1.0 10^3/uL Eosinophils # (Auto) 0.1 0.0-0.3 10^3/uL Basophils # (Auto) 0.0 0.0-0.1 10^3/uL Immature Granulocyte # (Auto) 0.1 0.0-0.1 10^3/uL Sodium Level 136 135-145 MMOL/L Potassium Level 4.2 3.6-5.0 MMOL/L Chloride Level 105 98-107 MMOL/L Carbon Dioxide Level 19 L 21-32 MMOL/L Anion Gap 12 5-14 MMOL/L Blood Urea Nitrogen 13 7-18 MG/DL Creatinine 0.61 0.60-1.30 MG/DL Estimat Glomerular Filtration Rate 119 BUN/Creatinine Ratio 21 Glucose Level 78 70-105 MG/DL Calcium Level 10.2 H 8.5-10.1 MG/DL Corrected Calcium 10.7 H 8.5-10.1 MG/DL Total Bilirubin 0.2 0.1-1.0 MG/DL Aspartate Amino Transf (AST/SGOT) 26 5-34 U/L Alanine Aminotransferase (ALT/SGPT) 22 0-55 U/L Alkaline Phosphatase 284 H 40-136 U/L Lactate Dehydrogenase 232 H 125-220 U/L Total Protein 6.2 L 6.4-8.2 GM/DL Albumin 3.4 3.2-4.5 GM/DL OB - Assessment/Plan/Diagnosis Assessment Assessment: induction of labor Admission Dx chronic hypertension with exacerbation of blood pressures 38 week gestation Admission Status: Inpatient Order (span 2 midnights) Reason for Inpatient Admission: labor induction Plan Plan: Induction Induction Method: per Misoprostol Protocol JUDAH AQUINO DO Apr 22, 2021 07:59
[2021-04-22] MEDS ORDERED: LABETALOL HCL 20 MG/4 ML VIAL IV ONE (08:00)
[2021-04-22] MEDS ORDERED: fentaNYL 2 mcg/ml BUPIVA 0.125 100 ML ONE (08:01)
[2021-04-22] MEDS: fentaNYL 2 mcg/ml BUPIVA 0.125 100 ML IV SCH ×2 (08:20→15:14)
[2021-04-22] MEDS ORDERED: BUPIVACAINE 0.25% 30 ML (SENSORCAINE) VIAL ONE (08:24)
[2021-04-22] MEDS ORDERED: fentaNYL INJ 100 MCG/2 ML AMP ONE (08:24)
[2021-04-22] MEDS ORDERED: NALOXONE 0.4 MG/ML 1 ML (NARCAN) VIAL IV PRN ×2 (09:00→17:45)
[2021-04-22] MEDS ORDERED: LACTATED RINGERS 1,000 ML IV ONE ×2 (09:00→16:06)
[2021-04-22] MEDS ORDERED: CATHETER FLUSH 10 ML SYR IV PRN ×2 (09:00→16:45)
[2021-04-22] MEDS: D5 LR IV SOLUTION 1,000 ML IV SCH (12:31)
[2021-04-22] MEDS ORDERED: OXYTOCIN PRE-MIX DRIP 500 ML IV SCH ×2 (14:30→17:45)
[2021-04-22] MEDS ORDERED: CITRIC ACID/SOB CIT (BICITRA) 30 ML UDC ONE (16:04)
[2021-04-22] MEDS ORDERED: FAMOTIDINE 20MG/2ML IV (PEPCID) ONE (16:05)
[2021-04-22] MEDS ORDERED: METOCLOPRAMIDE INJ 10 MG/2 ML (REGLAN) ONE (16:05)
[2021-04-22] MEDS ORDERED: AZITHROMYCIN INJECTION 500 MG/5 ML VIAL ONE (16:16)
[2021-04-22] MEDS ORDERED: NS (IVPB) 250 ML ONE (16:17)
[2021-04-22] MEDS ORDERED: ceFAZolin 2 GM IV Premixed 50 ML ONE (16:17)
[2021-04-22] MEDS ORDERED: FAMOTIDINE 20MG/2ML IV (PEPCID) IV ONE (16:45)
[2021-04-22] MEDS ORDERED: METOCLOPRAMIDE INJ 10 MG/2 ML (REGLAN) IV ONE (16:45)
[2021-04-22] MEDS ORDERED: CITRIC ACID/SOB CIT (BICITRA) 30 ML UDC PO ONE (16:45)
[2021-04-22] MEDS ORDERED: LACTATED RINGERS 1,000 ML IV PRN ×2 (16:45)
[2021-04-22] MEDS ORDERED: SUCCINYLCHOLINE INJ 100 MG/5 ML SYR/VIAL ONE (17:00)
[2021-04-22] MEDS ORDERED: LIDOCAINE PF 2% 5 ML (XYLOCAINE) VIAL ONE (17:00)
[2021-04-22] MEDS ORDERED: BUPIVACAINE 0.5% 30 ML (SENSORCAINE) VIAL ONE (17:00)
[2021-04-22] MEDS ORDERED: proPOfol 200 MG/20 ML (DIPRIVAN) VIAL IV ONE (17:00)
[2021-04-22] MEDS ORDERED: KETOROLAC 30 MG/ML VIAL ONE (17:02)
[2021-04-22] MEDS ORDERED: ONDANSETRON 4 MG/2 ML (SDV) Z0FRAN ONE (17:02)
[2021-04-22] MEDS ORDERED: MIDAZOLAM 2 MG/2 ML (VERSED) VIAL ONE (17:19)
[2021-04-22] MEDS ORDERED: SEVOFLURANE (ULTANE) 15 ML INHAL SOLN ONE (17:25)
[2021-04-22] MEDS ORDERED: OXYTOCIN PRE-MIX DRIP 500 ML IV ONE (17:25)
[2021-04-22] MEDS: KETOROLAC 30 MG/ML VIAL IV SCH (17:30)
--- NOTE | 2021-04-22 17:32 | Cesarean Section Operative ---
Procedure Procedure Note Pre-operative Diagnosis: Katy Bar is a 25 /Para 1/0 ,Gestational Age 38 weeks, non reassuring hearttones, placental abruption/vaginal bleeding, chronic hypertension with exacerbation Post-operative Diagnosis: same, occult cord prolapse Procedure: primary low transverse section Physician: JUDAH AQUINO Tax Consultant: Desi Vaughn, MS III Estimated blood loss: 300 mL Disposition: stable Findings: Viable female infant, Apgars 8/9, weight pending+, intact placenta, 3vc, normal appearing uterus, tubes, and ovaries. room 1638 timeout 1648 incision 1649 delivery 1652 Indications:Katy Bar is a 25 /Para 1 /0 ,Gestational Age 38 weeks presenting for induction of labor due to exacerbation of chronic hypertension. She had several doses on misoprostol and then had SROM about 0745 with blood tinged fluid; cervix was 2-3 cm/90/-2 station. She had occasional variable and late decelerations, but overall the strip was initially reassuring. However, as labor progressed (without augmentation), she had more excessive vaginal bleeding, with late decelerations. There was good recovery and contractions were every 5-6 minutes, so fetus tolerated this initially. I examined the patient after RN had said last check was 7 cm, and she was 9 cm dilated. We called for CS due to the hearttone. She was placed in trendelenburg as the hearttones were better in this position and allowed labor while the team arrived. I checked the cervix again 20 minutes later and there was no change and increased blood with exam, so she was taken to the OR. Her epidural was redosed, but on the start of the CS she did not have complete block so general anesthesia was initiated. Procedure Details: The patient was seen in pre-op and the procedure was discussed with the patient in full, including the risks, benefits, and alternatives. All questions were answered. The patient was taken to the operating room and a time out was per formed, verifying patient and procedure. After epidural anesthesia was not found to be adequate, but general anesthesia was done by our anesthesia colleagues, the patient was placed in the dorsal supine with leftward tilt for uterine displacement.~ Her abdomen was then prepped and draped in the typical sterile fashion. A Pfannenstiel skin incision was made using a scalpel and carried down through the underlying fascia. The fascia was incised in the midline and tented up using Jaquan clamps. On both the inferior and superior fascia side the rectus muscle was dissected off bluntly and sharply using Day scissors. The peritoneum was identified and entered bluntly in the midline. This was then stretched laterally using manual strength. After entering the abdominal cavity and confirming lack of intraperitoneal adhesions, a large Kamron retractor was placed and the lower uterine segment was visualized. A scalpel was utilized to make a low transverse uterine incision. The 's head was grasped and brought to the level of the incision. the head was noted to be in the OP presentation and slightly extended toward a forehead presentation. Fundal pressure was applied and was delivered without difficulty. Mouth and nares were suctioned with bulb suction. After the umbilical cord was clamped and cut, the infant was handed off to the pediatric staff. A sample of cord blood was then obtained. Cord gas was also taken. The placenta was delivered intact via uterine massage. There was evidence of a small abruption. The uterus was cleared of all clots and debris. The uterine incision was closed using 0 Vicryl in a running fashion. A second imbricated layer was placed using 0 Vicryl in a running fashion as well. The bilateral tubes and ovaries appeared normal. The uterus abdominal gutters were cleared of all clots and debris. A final check of the uterine incision showed it to be hemostatic. The peritoneum was closed using 3-0 Vicryl in a running fashion. The fascia was closed with 0 PDS in a running fashion. The subcutaneous space was hemostatic, and irrigated. The subcutaneous space was closed with 0 plain in several single interrupted stitches. The skin was then closed using 4-0 Monocryl in a running subcuticular fashion. The skin edges were reapproximated together and were hemostatic. An island dressing was applied. All sponge, lap and needle counts were correct at the end of the procedure per nursing. Vitals - Labs Vital Signs - I&O Vital Signs Date Time Temp Pulse Resp B/P (MAP) Pulse Ox O2 Delivery O2 Flow Rate FiO2 04/22/21 16:30 77 20 180/92 (121) 100 Non Rebreather 15.00 04/22/21 16:15 36.3 69 20 161/92 (115) 100 Non Rebreather 15.00 04/22/21 16:00 67 20 179/96 (123) 100 Non Rebreather 15.00 04/22/21 15:45 73 20 161/86 (111) 100 Non Rebreather 15.00 04/22/21 15:30 71 20 179/94 (122) 100 Non Rebreather 15.00 04/22/21 15:15 70 20 159/90 (113) 100 Non Rebreather 15.00 04/22/21 15:00 74 20 194/96 (128) 100 Non Rebreather 15.00 04/22/21 14:45 67 20 162/88 (112) 100 Non Rebreather 15.00 04/22/21 14:30 68 20 154/84 (107) 100 Non Rebreather 15.00 04/22/21 14:15 68 20 147/82 (103) 99 Non Rebreather 15.00 04/22/21 14:00 36.2 76 20 161/102 (121) 98 Non Rebreather 15.00 04/22/21 13:45 99 20 100 Room Air 04/22/21 13:30 63 20 158/82 (107) 100 Non Rebreather 15.00 04/22/21 13:15 68 20 155/82 (106) 100 Non Rebreather 15.00 04/22/21 13:00 63 20 156/81 (106) 100 Non Rebreather 15.00 04/22/21 12:45 65 20 146/73 (97) 100 Non Rebreather 15.00 04/22/21 12:30 71 20 159/83 (108) 96 Non Rebreather 15.00 04/22/21 12:15 68 20 165/96 (119) 100 Non Rebreather 15.00 04/22/21 12:00 59 20 161/91 (114) 100 Non Rebreather 15.00 04/22/21 11:45 36.4 64 20 173/99 (123) 99 Non Rebreather 15.00 04/22/21 11:30 66 20 182/98 (126) 100 Non Rebreather 15.00 04/22/21 11:15 61 20 166/91 (116) 100 Room Air 04/22/21 11:00 64 20 182/96 (124) 100 Room Air 04/22/21 10:45 66 20 160/98 (118) 100 Room Air 04/22/21 10:30 61 20 178/99 (125) 100 Room Air 04/22/21 10:15 69 20 151/95 (113) 100 Room Air 04/22/21 10:00 60 20 151/86 (107) 97 Room Air 04/22/21 09:45 36.0 60 20 152/90 (110) 99 Room Air 04/22/21 09:23 63 20 167/97 (120) 93 Room Air 04/22/21 09:20 65 20 167/93 (117) 97 Room Air 04/22/21 09:17 75 20 169/88 (115) 97 Room Air 04/22/21 09:14 58 20 160/95 (116) 97 Room Air 04/22/21 09:11 57 20 167/95 (119) 97 Room Air 04/22/21 09:08 57 20 170/100 (123) 97 Room Air 04/22/21 09:05 56 20 170/101 (124) 98 Room Air 04/22/21 09:02 69 20 177/100 (125) 97 Room Air 04/22/21 08:59 76 20 179/108 (131) 97 Room Air 04/22/21 08:56 69 20 182/111 (134) 97 Room Air 04/22/21 08:52 87 20 177/113 (134) 96 Room Air 04/22/21 08:49 84 20 175/113 (133) 97 Room Air 04/22/21 08:46 76 20 189/120 (143) 97 Room Air 04/22/21 08:43 77 20 187/121 (143) 99 Room Air 04/22/21 08:40 77 20 189/121 (143) 99 Room Air 04/22/21 08:30 73 20 199/115 (143) Room Air 04/22/21 08:15 67 20 194/126 (148) Room Air 04/22/21 07:20 36.1 62 20 188/103 (131) Room Air 04/22/21 06:25 54 18 142/91 (108) 04/22/21 05:50 36.0 54 20 165/86 (112) 04/22/21 04:20 89 20 170/85 (113) 04/22/21 03:58 36.1 72 20 167/93 (117) 04/22/21 03:20 73 20 165/83 (110) 04/22/21 02:22 80 20 157/94 (115) 04/21/21 23:58 36.4 76 20 158/91 (113) 04/21/21 23:00 36.3 72 20 155/77 (103) 04/21/21 21:45 36.3 69 20 162/85 (110) 04/21/21 20:29 36.5 76 20 98 Room Air 04/21/21 19:50 36.5 76 20 166/104 (124) 98 04/21/21 19:42 36.1 77 18 163/96 (118) I & O 04/22/21 07:00 Intake Total 1000 ml Balance 1000 ml Labs Laboratory Tests 04/21/21 19:20: Urine Color YELLOW, Urine Clarity CLEAR, Urine pH 6.0, Urine Specific [place] 1.010L, Urine Protein NEGATIVE, Urine Glucose (UA) NEGATIVE, Urine Ketones NEGATIVE, Urine Nitrite NEGATIVE, Urine Bilirubin NEGATIVE, Urine Urobilinogen 0.2, Urine Leukocyte Esterase 1+H, Urine RBC (Auto) NEGATIVE, Urine RBC NONE, Urine WBC 2-5, Urine Crystals PRESENTH, Urine Amorphous Sediment FEW PAULINO URATESH, Urine Bacteria MODERATEH, Urine Casts NONE, Urine Mucus NEGATIVE, Urine Culture Indicated YES, Urine Creatinine 24L, Urine Protein/Creatinine Ratio 04/21/21 19:35: White Blood Count 8.6, Red Blood Count 3.79L, Hemoglobin 11.5, Hematocrit 34L, Mean Corpuscular Volume 89, Mean Corpuscular Hemoglobin 30, Mean Corpuscular Hemoglobin Concent 34, Red Cell Distribution Width 13.3, Platelet Count 212, Mean Platelet Volume 11.9, Immature Granulocyte % (Auto) 1, Neutrophils (%) (Auto) 68, Lymphocytes (%) (Auto) 23, Monocytes (%) (Auto) 8, Eosinophils (%) (Auto) 1, Basophils (%) (Auto) 0, Neutrophils # (Auto) 5.8, Lymphocytes # (Auto) 2.0, Monocytes # (Auto) 0.6, Eosinophils # (Auto) 0.1, Basophils # (Auto) 0.0, Immature Granulocyte # (Auto) 0.1, Sodium Level 136, Potassium Level 4.2, Chloride Level 105, Carbon Dioxide Level 19L, Anion Gap 12, Blood Urea Nitrogen 13, Creatinine 0.61, Estimat Glomerular Filtration Rate 119, BUN/Creatinine Ratio 21, Glucose Level 78, Calcium Level 10.2H, Corrected Calcium 10.7H, Total Bilirubin 0.2, Aspartate Amino Transf (AST/SGOT) 26, Alanine Aminotransferase (ALT/SGPT) 22, Alkaline Phosphatase 284H, Lactate Dehydrogenase 232H, Total Protein 6.2L, Albumin 3.4 Microbiology 04/21/21 Urine Culture - Preliminary, Resulted Culture In Progress JUDAH AQUINO DO Apr 22, 2021 17:32
[2021-04-22] MEDS ORDERED: morphine INJ 4 MG/ML 1 ML (VIAL/SYRINGE) IV PRN (17:45)
[2021-04-22] MEDS ORDERED: TETANUS,DIPTH,PERTUSS P/F (BOOSTRIX) 0.5 ML VIAL IM SCH (17:45)
[2021-04-22] MEDS ORDERED: ONDANSETRON 4 MG/2 ML (SDV) Z0FRAN IVP PRN ×2 (17:45→18:00)
[2021-04-22] MEDS ORDERED: MEASLES,MUMPS,RUBELLA 1 EA INJ SC SCH (17:45)
[2021-04-22] MEDS ORDERED: PROMETHAZINE INJ 25 MG/ML (PHENERGAN) AMP IVP ONE (18:00)
[2021-04-22] MEDS ORDERED: HYDROmorphone 2 MG/ML VIAL (DILAUDID) IV ONE (18:00)
[2021-04-22] MEDS ORDERED: morphine INJ 10 MG/ML 1ML (SYR OR VIAL) IVP ONE (18:00)
[2021-04-22] MEDS: DOCUSATE SODIUM 100 MG (COLACE) CAP PO SCH (20:46)
[2021-04-22] MEDS: ACETAMINOPHEN 500 MG TAB (TYLENOL) PO SCH (20:47)
[2021-04-22] MEDS ORDERED: DOCUSATE SODIUM 100 MG (COLACE) CAP PO SCH (21:00)
[2021-04-22] MEDS ORDERED: LABETALOL 200 MG (NORMODYNE) TAB PO SCH (21:00)
[2021-04-22] MEDS ORDERED: CATHETER FLUSH 10 ML SYR IV SCH (22:00)
[2021-04-23 00:45] VITALS: BP 146/84
[2021-04-23] MEDS: CATHETER FLUSH 10 ML SYR IV SCH (00:53)
[2021-04-23] MEDS: KETOROLAC 30 MG/ML VIAL IV SCH ×3 (00:53→12:42)
[2021-04-23] MEDS: D5 LR IV SOLUTION 1,000 ML IV SCH (00:58)
[2021-04-23] MEDS: ACETAMINOPHEN 500 MG TAB (TYLENOL) PO SCH ×3 (04:15→21:30)
[2021-04-23 04:45] VITALS: BP 141/91
[2021-04-23 06:15] LABS: BASOPHILS % (AUTO) 0 % (0-10); EOSINOPHILS # (AUTO) 0.1 10^3/uL (0.0-0.3); EOSINOPHILS % (AUTO) 1 % (0-10); HEMATOCRIT 30 % (35-52); LYMPHOCYTES # (AUTO) 1.5 10^3/uL (1.0-4.0); LYMPHOCYTES % (AUTO) 13 % (12-44); MEAN CORPUSCULAR HEMOGLOBIN 30 pg (25-34); MEAN CORPUSCULAR HGB CONC 33 g/dL (32-36); MEAN CORPUSCULAR VOLUME 91 fL (80-99); MEAN PLATELET VOLUME 11.4 fL (9.0-12.2); MONOCYTES # (AUTO) 0.7 10^3/uL (0.0-1.0); MONOCYTES % (AUTO) 6 % (0-12); NEUTROPHILS % (AUTO) 79 % (42-75); PLATELET COUNT 160 10^3/uL (130-400); WHITE BLOOD COUNT 11.4 10^3/uL (4.3-11.0)
[2021-04-23] MEDS: ENOXAPARIN 40 MG/0.4 ML (LOVENOX) SYR SC SCH (06:21)
--- NOTE | 2021-04-23 08:51 | Anesthesia-Regional Post-Op ---
Regional Patient Condition Mental Status: Alert, Oriented x3 Circulation: Same as Pre-Op Headache: Absent Sensation: Full Recovery Motor Block: Absent Post Op Complications Complications None Follow Up Care/Instructions Patient Instructions None needed. Anesthesia/Patient Condition Patient is doing well, no complaints, stable vital signs, no apparent adverse anesthesia problems. No complications reported per nursing. D/C home per [facility] [place] Criteria: No NORBERT LOZADA CRNA Apr 23, 2021 08:51
[2021-04-23 08:54] VITALS: BP 148/91
[2021-04-23] MEDS: DOCUSATE SODIUM 100 MG (COLACE) CAP PO SCH ×2 (08:56→21:30)
[2021-04-23] MEDS: FERROUS SULF 325 MG (IRON) TAB PO SCH (08:57)
--- NOTE | 2021-04-23 10:22 | Postpartum Progress Note ---
Note Note Day # 1 Subjective: Patient is without complaints. Ambulating, voiding. Tolerating a regular diet without nausea or vomiting. Normal lochia. Pain is well controlled with oral pain medications. Breast feeding. Objective: Physical Exam: General - Alert and oriented, no apparent distress Abdomen - Soft, appropriately tender to palpation, non-distended, fundus firm at umbilicus Extremities - +1 edema, negative Vicente's bilaterally [] Assessment: Post- day # 1, status post PLTCS. Recovering well, hemodynamically stable Acute blood loss anemia induced hypertension Plan: Routine care. Encourage breast feeding. Encourage ambulation. Ferrous sulfate supplementation. BLANCA hose bilaterally Plan for discharge tomorrow Vitals - Labs Vital Signs - I&O Vital Signs Date Time Temp Pulse Resp B/P (MAP) Pulse Ox O2 Delivery O2 Flow Rate FiO2 04/23/21 08:54 36.4 89 18 148/91 (110) 98 Room Air 04/23/21 04:45 36.4 86 20 141/91 (108) 100 Room Air 04/23/21 00:45 36.2 73 20 146/84 (104) 100 Room Air 04/22/21 20:47 36.6 84 20 160/95 (116) 100 Room Air 04/22/21 18:41 36.5 67 20 155/94 (114) 100 Room Air 04/22/21 18:25 36.3 20 42/89 (73) 98 Room Air 04/22/21 18:25 Room Air 04/22/21 18:20 20 42/89 (73) 98 Room Air 04/22/21 18:10 18 148/88 (108) 98 Room Air 04/22/21 18:10 Room Air 04/22/21 18:00 20 129/98 (108) 98 Room Air 04/22/21 17:55 OxyMask 2 04/22/21 17:50 20 145/89 (107) 100 OxyMask 2 04/22/21 17:41 36.3 20 142/109 (120) 100 OxyMask 5 04/22/21 17:41 OxyMask 5 04/22/21 16:30 77 20 180/92 (121) 100 Non Rebreather 15.00 04/22/21 16:15 36.3 69 20 161/92 (115) 100 Non Rebreather 15.00 04/22/21 16:00 67 20 179/96 (123) 100 Non Rebreather 15.00 04/22/21 15:45 73 20 161/86 (111) 100 Non Rebreather 15.00 04/22/21 15:30 71 20 179/94 (122) 100 Non Rebreather 15.00 04/22/21 15:15 70 20 159/90 (113) 100 Non Rebreather 15.00 04/22/21 15:00 74 20 194/96 (128) 100 Non Rebreather 15.00 04/22/21 14:45 67 20 162/88 (112) 100 Non Rebreather 15.00 04/22/21 14:30 68 20 154/84 (107) 100 Non Rebreather 15.00 04/22/21 14:15 68 20 147/82 (103) 99 Non Rebreather 15.00 04/22/21 14:00 36.2 76 20 161/102 (121) 98 Non Rebreather 15.00 04/22/21 13:45 99 20 100 Room Air 04/22/21 13:30 63 20 158/82 (107) 100 Non Rebreather 15.00 04/22/21 13:15 68 20 155/82 (106) 100 Non Rebreather 15.00 04/22/21 13:00 63 20 156/81 (106) 100 Non Rebreather 15.00 04/22/21 12:45 65 20 146/73 (97) 100 Non Rebreather 15.00 04/22/21 12:30 71 20 159/83 (108) 96 Non Rebreather 15.00 04/22/21 12:15 68 20 165/96 (119) 100 Non Rebreather 15.00 04/22/21 12:00 59 20 161/91 (114) 100 Non Rebreather 15.00 04/22/21 11:45 36.4 64 20 173/99 (123) 99 Non Rebreather 15.00 04/22/21 11:30 66 20 182/98 (126) 100 Non Rebreather 15.00 04/22/21 11:15 61 20 166/91 (116) 100 Room Air 04/22/21 11:00 64 20 182/96 (124) 100 Room Air 04/22/21 10:45 66 20 160/98 (118) 100 Room Air 04/22/21 10:30 61 20 178/99 (125) 100 Room Air 04/22/21 10:15 69 20 151/95 (113) 100 Room Air I & O 04/23/21 07:00 Intake Total 3765 ml Output Total 1800 ml Balance 1965 ml Labs Laboratory Tests 04/23/21 05:35: White Blood Count 11.4H, Red Blood Count 3.30L, Hemoglobin 10.0L, Hematocrit 30L , Mean Corpuscular Volume 91, Mean Corpuscular Hemoglobin 30, Mean Corpuscular Hemoglobin Concent 33, Red Cell Distribution Width 13.3, Platelet Count 160, Mean Platelet Volume 11.4, Immature Granulocyte % (Auto) 1, Neutrophils (%) (Auto) 79H, Lymphocytes (%) (Auto) 13, Monocytes (%) (Auto) 6, Eosinophils (%) (Auto) 1, Basophils (%) (Auto) 0, Neutrophils # (Auto) 9.0H, Lymphocytes # (Auto) 1.5, Monocytes # (Auto) 0.7, Eosinophils # (Auto) 0.1, Basophils # (Auto) 0.0, Immature Granulocyte # (Auto) 0.1 Microbiology 04/21/21 Urine Culture - Preliminary, Resulted Culture In Progress JONAH CARRASCO APRN Apr 23, 2021 10:22
[2021-04-23 12:45] VITALS: BP 143/89
[2021-04-23] MEDS: IBUPROFEN 600 MG (MOTRIN) TAB PO SCH (19:01)
[2021-04-23 19:03] VITALS: BP 148/102
[2021-04-24 03:25] VITALS: BP 153/89
[2021-04-24] MEDS: IBUPROFEN 600 MG (MOTRIN) TAB PO SCH ×2 (03:25→09:20)
[2021-04-24] MEDS: ACETAMINOPHEN 500 MG TAB (TYLENOL) PO SCH (05:21)
[2021-04-24] MEDS: ENOXAPARIN 40 MG/0.4 ML (LOVENOX) SYR SC SCH (05:21)
[2021-04-24] MEDS ORDERED: IBUP-844 PO (08:05)
[2021-04-24] MEDS ORDERED: DCS100C PO (08:05)
[2021-04-24] MEDS ORDERED: FERR325T24 PO (08:05)
[2021-04-24] MEDS ORDERED: OXC5T PO (08:05)
[2021-04-24] MEDS ORDERED: ACET-93 PO (08:05)
--- NOTE | 2021-04-24 08:08 | Discharge Inst-Women's Service ---
Discharge Inst-Women's Serv Depart Medication/Instructions New, Converted or Re-Newed RX: Transmitted to Pharmacy Final Diagnosis deep pelvic arrest of dilation non reassuring hearttones 38 week gestation chronic hypertension with exacerbation of gestational hypertension Problems Reviewed?: Yes Consults/Follow Up Additional Follow Up: Yes (1 week for incision check and 6 week pp exam) Activity Activity: Activity as Tolerated Driving Instructions: No Driving for 1 Week NO SMOKING: NO SMOKING Nothing Inside Vagina: No Douching, No [place], No Tampons Diet Discharge Diet: No Restrictions Symptoms to Report to : Swelling Increased, Bleeding Excessive, Pain Increased, Fever Over 101 Degrees F, Vaginal Bleeding Increase, Vaginal Discharge Foul For Any Problems or Questions: Contact Your Physician Skin/Wound Care Infection Signs and Symptoms: Increased Redness, Foul Odor of Wound, Increased Drainage, Skin Itchy or Has a Rash, Increased Swelling, Temperature Above 101 F Operative Area Clean and Dry: Keep Incision Clean/Dry JUDAH AQUINO DO Apr 24, 2021 08:08
[2021-04-24 09:17] VITALS: BP 149/94
[2021-04-24] MEDS: FERROUS SULF 325 MG (IRON) TAB PO SCH (09:19)
[2021-04-24] MEDS: DOCUSATE SODIUM 100 MG (COLACE) CAP PO SCH (09:19)
[2021-04-24] MEDS ORDERED: LABE200T7 PO (11:58)
== END 2021-04-24 13:10 | disposition home or self-care (01) | DRG 787 ==
LOC: LDRP 18:30
PROVIDERS: ADMIT Obstetrics & Gynecology; ATTEND Obstetrics & Gynecology
PROC: 10D00Z1 Extraction of Products of Conception, Low, Open Approach (ICD-10-PCS; principal; 2021-04-22 16:38)
DX: O13.4 Gestational [pregnancy-induced] hypertension without significant proteinuria, complicating childbirth (principal); D62 Acute posthemorrhagic anemia; O45.93 Premature separation of placenta, unspecified, third trimester; O99.284 Endocrine, nutritional and metabolic diseases complicating childbirth; E03.9 Hypothyroidism, unspecified; O76 Abnormality in fetal heart rate and rhythm complicating labor and delivery; O90.81 Anemia of the puerperium; Z3A.38 38 weeks gestation of pregnancy; Z37.0 Single live birth; Z79.82 Long term (current) use of aspirin; Z79.890 Hormone replacement therapy; Z79.899 Other long term (current) drug therapy
CPT/HCPCS: 36415; 80053; 81000; 82570; 83615; 84156; 85025; 86780; 86850; 86900; 86901; 87088